=== PATIENT | male | born 1950 | race Caucasian/White ===

== ENCOUNTER 2017-09-22 07:19 | Day surgery (SDC) | payer OTHER, BC ==
[2017-09-17 17:56] VITALS: BMI 31.9
[2017-09-22] MEDS ORDERED: PROPOFOL 20 ML ONE ×2 (07:25)
[2017-09-22] MEDS ORDERED: LIDOCAINE HCL/PF 2% SDV 5ML VIAL ONE (07:41)
[2017-09-22 09:01] VITALS: TEMP 97.9
[2017-09-22 09:23] VITALS: BP 112/66; PULSE 66
== END 2017-09-22 09:25 | disposition home or self-care (01) ==
LOC: FASU-ENDO 07:19
PROVIDERS: ATTEND Internal Medicine Gastroenterology
PROC: 0DJD8ZZ Inspection of Lower Intestinal Tract, Via Natural or Artificial Opening Endoscopic (ICD-10-PCS; principal; 2017-09-22 08:36)
DX: Z86.010 Personal history of colon polyps (principal); K57.30 Diverticulosis of large intestine without perforation or abscess without bleeding

== ENCOUNTER 2022-08-10 08:09 | Day surgery (SDC) | payer OTHER, BC ==
[2022-08-07 09:01] VITALS: BMI 34.2
[2022-08-10] MEDS ORDERED: PROPOFOL 120 ML ONE (09:49)
[2022-08-10 13:16] VITALS: TEMP 97
[2022-08-10 13:22] VITALS: BP 106/69; PULSE 61; RESP 16
== END 2022-08-10 11:05 | disposition home or self-care (01) ==
LOC: FASU-ENDO 08:09
PROVIDERS: ATTEND Internal Medicine Gastroenterology
PROC: 0DBK8ZX Excision of Ascending Colon, Via Natural or Artificial Opening Endoscopic, Diagnostic (ICD-10-PCS; principal; 2022-08-10 09:48)
DX: Z12.11 Encounter for screening for malignant neoplasm of colon (principal); D12.2 Benign neoplasm of ascending colon; K57.30 Diverticulosis of large intestine without perforation or abscess without bleeding; Z86.010 Personal history of colon polyps
CPT/HCPCS: 88305-TC